=== PATIENT | female | born 1990 | race Caucasian/White ===

== ENCOUNTER 2018-10-13 08:42 | Emergency (ER) | payer OTHER ==
[~2018-10-13] VITALS: Ht 162.6 cm; Wt 80.0 kg
[~2018-10-13 08:42] MED LIST: AUGMENTIN400 MG OR; DARVOCET N-100100 - OR; FLOXIN OTIC OT; MEDDOSEPAK OR; NO HOME MEDS; ROBITUSS12 OR; ZPAK OR
[2018-10-13] MEDS ORDERED: FLEXERIL PO (10:50)
[2018-10-13] MEDS ORDERED: TORADOL PO (10:50)
[2018-10-13 10:54] VITALS: BP 141/91
== END 2018-10-13 11:00 | disposition home or self-care (01) | DRG 563 ==
LOC: ED 08:42
DX: S39.012A Strain of muscle, fascia and tendon of lower back, initial encounter (principal); S29.012A Strain of muscle and tendon of back wall of thorax, initial encounter; V49.49XA Driver injured in collision with other motor vehicles in traffic accident, initial encounter; Y92.410 Unspecified street and highway as the place of occurrence of the external cause